=== PATIENT | female | born 1945 | race Caucasian/White ===

== ENCOUNTER 2025-04-16 10:41 | Outpatient (AMB) | payer MEDICARE, SELFPAY | END 2025-04-16 10:47 | disposition home or self-care (01) | PROVIDERS: Visit Provider Registered Nurse Emergency | DX: J30.89 Other allergic rhinitis (principal) | CPT/HCPCS: 95117; 95165 ==

== ENCOUNTER 2025-05-14 11:29 | Outpatient (AMB) | payer MEDICARE, SELFPAY | END 2025-05-14 11:29 | disposition home or self-care (01) | LOC: HO.HMGAL 11:29 | PROVIDERS: PCP Internal Medicine; Visit Provider Registered Nurse Emergency | DX: J30.89 Other allergic rhinitis (principal) | CPT/HCPCS: 95117; 95165 ==

== ENCOUNTER 2025-06-30 13:30 | Outpatient (AMB) | payer MEDICARE, SELFPAY | END 2025-06-30 13:32 | disposition home or self-care (01) | LOC: HO.HMGAL 13:30 | PROVIDERS: Visit Provider Registered Nurse Emergency | DX: J30.89 Other allergic rhinitis (principal) | CPT/HCPCS: 95117; 95165 ==

== ENCOUNTER 2025-08-06 11:16 | Outpatient (AMB) | payer MEDICARE, SELFPAY | END 2025-08-06 11:16 | disposition home or self-care (01) | LOC: HO.HMGAL 11:16 | PROVIDERS: Visit Provider Registered Nurse Emergency | DX: J30.89 Other allergic rhinitis (principal) | CPT/HCPCS: 95117; 95165 ==